=== PATIENT | female | born 1995 | race African-American/Black ===

== ENCOUNTER 2020-01-13 15:03 | Emergency (ER) | payer OTHER ==
[~2020-01-13] VITALS: Ht 177.8 cm; Wt 79.4 kg
[~2020-01-13 15:03] MED LIST: TRAMADOL 50 MG50 MG; TRINATE TABLET1 TAB PO; TUMS PO
[2020-01-13 15:48] LABS: URINE BILIRUBIN NEGATIVE (Negative); URINE BLOOD NEGATIVE (Negative); URINE CLARITY CLEAR; URINE COLOR YELLOW; URINE GLUCOSE-RANDOM* NEGATIVE (Negative); URINE KETONES NEGATIVE (Negative); URINE LEUKOCYTES-REFLEX NEGATIVE (Negative); URINE NITRITE-REFLEX NEGATIVE (Negative); URINE PROTEIN (DIPSTICK) NEGATIVE (Negative); URINE UROBILINOGEN 0.2 E.U./dl (0.2-1.0)
[2020-01-13 17:31] VITALS: BP 109/68
== END 2020-01-13 17:32 | disposition left against medical advice (07) ==
LOC: ER 15:03
PROVIDERS: Nurse Practitioner
DX: R10.2 Pelvic and perineal pain (principal); M54.5 Low back pain; Z79.899 Other long term (current) drug therapy; Z87.42 Personal history of other diseases of the female genital tract